=== PATIENT | male | born 1955 | race American Indian/Alaskan Native ===

== ENCOUNTER 2021-12-24 13:40 | Outpatient (CLI) | payer MEDICAID ==
--- NOTE | 2021-12-24 16:18 | Vascular Lab Report ---
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 TECHNIQUE: Arterial duplex examination of both lower extremities performed using B-mode, color flow and spectral Doppler assessment. FINDINGS: RIGHT: Common Femoral Artery: PSV 145 cm/sec. Biphasic waveform. Proximal SFA: PSV 77 cm/sec. Biphasic waveform. Mid SFA: PSV 57 cm/sec. Monophasic waveform. Distal SFA: PSV 41 cm/sec. Monophasic waveform. Popliteal artery: PSV 29 cm/sec. Monophasic waveform. Posterior tibial artery: PSV 19 cm/sec. Monophasic waveform. Dorsalis Pedis Artery: PSV 36 cm/sec. Monophasic waveform. LEFT: Common Femoral Artery: PSV 165 cm/sec. Triphasic waveform. Proximal SFA: PSV 169 cm/sec. Biphasic waveform. Mid SFA: PSV 111 cm/sec. Biphasic waveform. Distal SFA: PSV 72 cm/sec. Biphasic waveform. Popliteal artery: PSV 131 cm/sec. Biphasic waveform. Posterior tibial artery: PSV 31 cm/sec. Biphasic waveform. Dorsalis Pedis Artery: PSV 57 cm/sec. Biphasic waveform. IMPRESSION: 1. Waveforms and velocities as outlined above notable for extensive abnormal monophasic waveforms thr oughout the right lower extremity Doppler Waveform: * Triphasic is normal. * Biphasic is abnormal if clear transition from triphasic signal along vascular tree. * Monophasic is abnormal. Signer Name: Scott Marcial MD Signed: 12/24/2021 4:14 PM Workstation Name: [id number]
== END 2021-12-24 13:41 | disposition home or self-care (01) ==
LOC: VAS 13:40
PROVIDERS: ATTEND Surgery Vascular Surgery
DX: I70.213 Atherosclerosis of native arteries of extremities with intermittent claudication, bilateral legs (principal)
CPT/HCPCS: 93925